=== PATIENT | female | born 1980 | race Caucasian/White ===

== ENCOUNTER 2021-04-21 15:36 | Emergency (ER) | payer SELFPAY ==
[2021-04-21 17:04] LABS: Amphetamine Not Detected (NotDetected); Barbiturates Screen Not Detected (NotDetected); Benzodiazepine Screen Not Detected (NotDetected); Cocaine Metabolite Screen Not Detected (NotDetected); Medtox Control Line Valid? VALID (VALID); Methadone Not Detected (NotDetected); Methamphetamine Not Detected (NotDetected); Opiate Screen Not Detected (NotDetected); Oxycodone Screen Not Detected (NotDetected); Phencyclidine (PCP) Not Detected (NotDetected); THC/Cannabinoid Screen Not Detected (NotDetected); Tricyclic Screen Not Detected (NotDetected)
== END 2021-04-21 17:20 | disposition home or self-care (01) ==
LOC: MADERS 15:36
DX: Z02.89 Encounter for other administrative examinations (principal); F17.210 Nicotine dependence, cigarettes, uncomplicated
CPT/HCPCS: 80306; 99282

== ENCOUNTER 2021-05-29 13:40 | Outpatient (CLI) | payer SELFPAY | END 2021-05-29 13:41 | disposition home or self-care (01) | LOC: MADLAB 13:40 | PROVIDERS: ATTEND Family Medicine | DX: Z51.81 Encounter for therapeutic drug level monitoring (principal); Z79.891 Long term (current) use of opiate analgesic; Z79.899 Other long term (current) drug therapy | CPT/HCPCS: 80305 ==

== ENCOUNTER 2021-06-12 12:22 | Outpatient (CLI) | payer SELFPAY | END 2021-06-12 12:23 | disposition home or self-care (01) | LOC: MADLAB 12:22 | PROVIDERS: ATTEND Family Medicine | DX: Z51.81 Encounter for therapeutic drug level monitoring (principal); Z79.899 Other long term (current) drug therapy | CPT/HCPCS: 80305 ==

== ENCOUNTER 2021-06-17 18:23 | Emergency (ER) | payer SELFPAY ==
[2021-06-17] MEDS ORDERED: Albuterol 200 PUFF (6.7GM INHALER) ONE (20:06)
[2021-06-18 16:12] LABS: SARS-CoV-2 PCR by NAA DETECTED (NotDetected)
== END 2021-06-17 20:34 | disposition home or self-care (01) ==
LOC: MADERS 18:23
DX: U07.1 COVID-19 (principal); F17.210 Nicotine dependence, cigarettes, uncomplicated
CPT/HCPCS: 71045; U0003; U0005

== ENCOUNTER 2021-10-28 13:33 | Outpatient (CLI) | payer SELFPAY | END 2021-10-28 13:34 | disposition home or self-care (01) | LOC: MADLAB 13:33 | PROVIDERS: ATTEND Family Medicine | DX: Z51.81 Encounter for therapeutic drug level monitoring (principal); Z79.899 Other long term (current) drug therapy | CPT/HCPCS: 80305 ==

== ENCOUNTER 2022-01-29 13:47 | Outpatient (CLI) | payer OTHER ==
[2022-01-29 14:56] LABS: Amphetamine Not Detected (NotDetected); Barbiturates Screen Not Detected (NotDetected); Benzodiazepine Screen Not Detected (NotDetected); Cocaine Metabolite Screen Not Detected (NotDetected); Medtox Control Line Valid? VALID (VALID); Methadone Not Detected (NotDetected); Methamphetamine Not Detected (NotDetected); Opiate Screen Not Detected (NotDetected); Oxycodone Screen Not Detected (NotDetected); Phencyclidine (PCP) Not Detected (NotDetected); THC/Cannabinoid Screen Not Detected (NotDetected); Tricyclic Screen Not Detected (NotDetected)
== END 2022-01-29 13:48 | disposition home or self-care (01) ==
LOC: MADLAB 13:47
PROVIDERS: ATTEND Family Medicine
DX: Z00.00 Encounter for general adult medical examination without abnormal findings (principal)
CPT/HCPCS: 80306

== ENCOUNTER 2022-03-15 14:12 | Outpatient (CLI) | payer BC | END 2022-03-15 14:13 | disposition home or self-care (01) | LOC: MADLAB 14:12 | PROVIDERS: ATTEND Family Medicine | DX: Z51.81 Encounter for therapeutic drug level monitoring (principal); Z79.899 Other long term (current) drug therapy | CPT/HCPCS: 80305 ==

== ENCOUNTER 2022-03-31 09:50 | Outpatient (CLI) | payer BC | END 2022-03-31 09:51 | disposition home or self-care (01) | LOC: MADLAB 09:50 | PROVIDERS: ATTEND Family Medicine | DX: Z51.81 Encounter for therapeutic drug level monitoring (principal); Z79.899 Other long term (current) drug therapy | CPT/HCPCS: 80305 ==

== ENCOUNTER 2022-04-12 17:54 | Emergency (ER) | payer BC ==
[2022-04-12] MEDS ORDERED: methylPREDNISolone Sod Succ/PF 125 MG/2 ML VIAL ONE (19:04)
[2022-04-12] MEDS ORDERED: diphenhydrAMINE 50 MG/ML VIAL ONE (19:04)
[2022-04-12] MEDS ORDERED: Famotidine/PF 20 mg/2ml Vial ONE (19:04)
[2022-04-12] MEDS ORDERED: diphenhydrAMINE 25 MG CAP ONE (19:18)
[2022-04-12] MEDS ORDERED: Famotidine 20 MG TAB ONE (19:18)
[2022-04-12] MEDS ORDERED: predniSONE 10 MG TAB ONE (19:19)
[2022-04-12] MEDS ORDERED: predniSONE 20 MG TAB ONE (19:19)
== END 2022-04-12 20:32 | disposition home or self-care (01) ==
LOC: MADERS 17:54
DX: L23.7 Allergic contact dermatitis due to plants, except food (principal); F17.210 Nicotine dependence, cigarettes, uncomplicated
CPT/HCPCS: 96374; 96375; J1200; J2930; J7512; S0028

== ENCOUNTER 2022-06-25 10:58 | Outpatient (CLI) | payer SELFPAY | END 2022-06-25 10:59 | disposition home or self-care (01) | LOC: MADLAB 10:58 | PROVIDERS: ATTEND Family Medicine | DX: Z51.81 Encounter for therapeutic drug level monitoring (principal); Z79.899 Other long term (current) drug therapy | CPT/HCPCS: 80305 ==

== ENCOUNTER 2022-07-12 09:05 | Emergency (ER) | payer SELFPAY ==
[2022-07-12] MEDS ORDERED: Amoxicillin/Potassium Clav 875 MG TAB ONE (09:43)
[2022-07-12] MEDS ORDERED: Ketorolac Tromethamine 30 MG/ML VIAL ONE (09:43)
[2022-07-12] MEDS ORDERED: Iopamidol 370 76% 100 ML VIAL ONE (09:52)
[2022-07-12 09:59] LABS: #Basophils 0.1 thou/uL (0.0-0.2); #Eosinphils 0.2 thou/uL (0.0-0.7); #Monocytes 0.5 thou/uL (0.11-0.59); #Neutrophils 5.2 thou/uL (1.40-6.50); %Basophils 1.1 % (0.0-1.0); %Eosinophils 2.9 % (0.0-10.0); %Lymphocytes 25.4 % (21.0-51.0); %Neutrophils 64.6 % (42.0-75.0); Hemoglobin 12.4 g/dL (12.0-16.0); Mean Corpuscular HGB CONC 31.1 g/dL (32.0-36.0); Mean Platelet Volume 8.4 fL (7.4-10.4); Platelet Count 295 thou/uL (130-400); Red Blood Cell (RBC) Count 4.29 mill/uL (4.20-5.40)
[2022-07-12 10:09] LABS: Anion Gap 15 mmol/L (10-20); BUN (Urea Nitrogen) 10 mg/dL (7.0-18.7); Calc. Creatinine Clearance 0 mL/min (70-130); Calcium 9.2 mg/dL (7.8-10.44); Carbon Dioxide 24 mmol/L (22-29); Chloride 106 mmol/L (98-107); Estimated GFR 91; Glucose 124 mg/dL (70-105); Potassium 3.6 mmol/L (3.5-5.1); Sodium 141 mmol/L (136-145)
[2022-07-12 10:19] LABS: BHCG - Serum Negative (NEGATIVE); Pregs Control Background? CLEAR/WHITE (CLR/WHITE); Pregs Control Bar Appear? YES (CONTROL BAR)
== END 2022-07-12 10:45 | disposition home or self-care (01) ==
LOC: MADERS 09:05
DX: K05.319 Chronic periodontitis, localized, unspecified severity (principal); K02.9 Dental caries, unspecified; F17.210 Nicotine dependence, cigarettes, uncomplicated
CPT/HCPCS: 70491; 80048; 84703; 85025; 96374; J1885; Q9967

== ENCOUNTER 2022-08-13 11:30 | Emergency (ER) | payer SELFPAY ==
[2022-08-13] MEDS ORDERED: Lidocaine 1% PF 5 ML VIAL ONE (12:04)
[2022-08-13] MEDS ORDERED: cefTRIAXone\\ROCEPHIN 1 GM VIAL ONE (12:04)
[2022-08-13] MEDS ORDERED: Amoxicillin/Potassium Clav 875 MG TAB ONE (12:04)
[2022-08-13] MEDS ORDERED: Ibuprofen 600 MG TAB ONE (12:04)
== END 2022-08-13 12:28 | disposition home or self-care (01) ==
LOC: MADERS 11:30
DX: K04.7 Periapical abscess without sinus (principal); K02.9 Dental caries, unspecified; L03.211 Cellulitis of face; F17.210 Nicotine dependence, cigarettes, uncomplicated
CPT/HCPCS: 96372; 99283; J0696

== ENCOUNTER 2022-08-17 12:10 | Outpatient (CLI) | payer OTHER | END 2022-08-17 12:11 | disposition home or self-care (01) | LOC: MADLAB 12:10 | PROVIDERS: ATTEND Family Medicine | DX: Z51.81 Encounter for therapeutic drug level monitoring (principal); Z79.899 Other long term (current) drug therapy | CPT/HCPCS: 80305 ==